=== PATIENT | female | born 1960 | race Two or more races ===

== ENCOUNTER 2021-12-05 14:52 | Emergency (ER) | payer OTHER ==
[~2021-12-05] VITALS: Ht 167.6 cm; Wt 83.9 kg
[2021-12-05] MEDS ORDERED: SIMVASTATIN20 MG PO (15:11)
[2021-12-05] MEDS ORDERED: COZAAR25 MG PO (15:11)
[2021-12-05] MEDS ORDERED: SYNTHROID125 MCG PO (15:11)
[2021-12-05] MEDS ORDERED: BACTRIM DS TAB1 EACH PO (18:35)
== END 2021-12-05 19:07 | disposition home or self-care (01) ==
LOC: ER 14:52
DX: N39.0 Urinary tract infection, site not specified (principal); R30.0 Dysuria; I10 Essential (primary) hypertension; Z88.8 Allergy status to other drugs, medicaments and biological substances; Z91.040 Latex allergy status